=== PATIENT | male | born 1970 | race Caucasian/White ===

== ENCOUNTER 2019-06-09 07:02 | Emergency (ER) | payer SELFPAY ==
[~2019-06-09] VITALS: Ht 182.9 cm; Wt 90.7 kg
[2019-06-09] MEDS ORDERED: chlordiazePOXIDE HCL 5 MG CAP PO ONE (07:45)
[2019-06-09] MEDS ORDERED: cloNIDine HCL 0.1 MG TAB PO ONE (07:45)
[2019-06-09 08:07] LABS: Basophils # (auto) 0.1 10 ^3/uL (0-0.2); Lymphocytes # (auto) 1.1 10 ^3/uL (0.4-5.4); Platelet Count (auto) 204 10^3/uL (140-450)
[2019-06-09 08:08] LABS: Basophils % (auto) 0.7 % (0.0-2.0); Eosinophils # (auto) 0 10 ^3/uL (0-0.8); Eosinophils % (auto) 0.6 % (0.0-7.0); Hematocrit 53.3 % (41.0-53.0); Hemoglobin 18.7 g/dL (13.5-17.5); Lymphocytes % (auto) 13.6 % (10.0-50.0); Mean Corpuscular Hemoglobin 34.3 pg (28.0-32.0); Mean Corpuscular Volume 98.1 fL (80.0-100.0); Monocytes # (auto) 1.1 10 ^3/uL (0-1.3); Monocytes % (auto) 13.2 % (0.0-12.0); Neutrophils # (auto) 5.8 10 ^3/uL (1.6-8.6); Neutrophils % (auto) 71.9 % (37.0-80.0); Red Blood Cells 5.43 10^6/uL (4.5-5.90); Red Cell Distribution Width 14.9 % (11.8-14.3); White Blood Cell 8.1 10^3/uL (4.4-10.8)
[2019-06-09 08:10] LABS: Urine Bacteria NONE SEEN /hpf (None Seen); Urine Blood Negative /uL (Negative); Urine Specific Gravity 1.003 (1.001-1.035); Urine WBC 1 /hpf (0 - 3)
[2019-06-09 08:29] LABS: Amphetamine Screen, Urine NEGATIVE (NEGATIVE); Barbiturate Scree,Urine NEGATIVE (NEGATIVE); Benzodiazephine Screen, Urine NEGATIVE (NEGATIVE); Cannabinoid Screen, Urine NEGATIVE (NEGATIVE); Cocaine Screen, Urine NEGATIVE (NEGATIVE); Opiate Scree,Urine NEGATIVE (NEGATIVE); Phencyclidine Screen, Urine NEGATIVE (NEGATIVE)
[2019-06-09 08:30] LABS: Albumin 3.8 g/dL (3.4-5.0); Calcium 9.5 mg/dL (8.5-10.1); Potassium 4.3 mmol/L (3.5-5.1)
[2019-06-09 08:34] LABS: BUN/Creatinine Ratio 8.1; Bilirubin, Total 1.4 mg/dL (0.2-1.0); Total Protein 9.1 g/dL (6.4-8.2)
[2019-06-09] MEDS ORDERED: THIAMINE 100mg/ml INJ (200mg/2ml VIAL) IV ONE (09:45)
[2019-06-09] MEDS ORDERED: LORazepam 2MG/ML-1ML VIAL IV ONE (09:45)
[2019-06-09] MEDS ORDERED: SODIUM CHLORIDE 0.9% 1,000 ML IV ONE (09:45)
[2019-06-09 10:00] VITALS: BP 169/101
== END 2019-06-09 10:37 | disposition home or self-care (01) ==
LOC: ER 07:02
DX: F10.239 Alcohol dependence with withdrawal, unspecified (principal); I10 Essential (primary) hypertension; E86.0 Dehydration; F41.9 Anxiety disorder, unspecified; Y90.9 Presence of alcohol in blood, level not specified
CPT/HCPCS: 36415; 80053; 80307; 81001; 84484; 85025; 96361; 96374; 99283; J3411; J7030